=== PATIENT | female | born 1960 | race Caucasian/White ===

== ENCOUNTER → 2016-08-18 | Outpatient (CLI) | payer OTHER | LOC: FIMAGING 09:55 | PROVIDERS: ATTEND Family Medicine | DX: G50.1 Atypical facial pain (principal) ==

== ENCOUNTER → 2016-11-17 | Outpatient (CLI) | payer OTHER | LOC: FIMAGING 09:05 | PROVIDERS: ATTEND Family Medicine | DX: Z12.31 Encounter for screening mammogram for malignant neoplasm of breast (principal) | CPT/HCPCS: G0202 ==

== ENCOUNTER → 2017-12-13 | Outpatient (CLI) | payer OTHER | LOC: FIMAGING 13:09 | PROVIDERS: ATTEND Family Medicine | DX: Z12.31 Encounter for screening mammogram for malignant neoplasm of breast (principal) ==

== ENCOUNTER → 2018-01-10 | Day surgery (SDC) | payer OTHER ==
[~2018-01-10] MED LIST: BUPIVACAINE 0.5% 10 ML SDV ONE; LIDOCAINE 1% 300 MG/30 ML SDV ONE; THROMBIN (BOVINE) 5,000 UNIT VIAL TP ONE
== END | disposition home or self-care (01) ==
LOC: FIMAGING 07:27
PROVIDERS: ATTEND Family Medicine
PROC: 0HBT3ZX Excision of Right Breast, Percutaneous Approach, Diagnostic (ICD-10-PCS; principal; 2018-01-10)
DX: D05.11 Intraductal carcinoma in situ of right breast (principal); Z88.2 Allergy status to sulfonamides

== ENCOUNTER → 2018-01-31 | Outpatient (CLI) | payer OTHER ==
[~2018-01-31] MED LIST changes: -BUPIVACAINE 0.5% 10 ML SDV ONE; +GADOBUTROL 10 ML VIAL IVP ONE; -LIDOCAINE 1% 300 MG/30 ML SDV ONE; -THROMBIN (BOVINE) 5,000 UNIT VIAL TP ONE
== END ==
LOC: FIMAGING 12:20
PROVIDERS: ATTEND Surgery
DX: D05.11 Intraductal carcinoma in situ of right breast (principal)
CPT/HCPCS: 0159T; A9585; C8908

== ENCOUNTER 2018-02-24 06:25 | Day surgery (SDC) | payer OTHER ==
[2018-02-24] MEDS ORDERED: LR 1,000 ML IV ONE (06:55)
[2018-02-24] MEDS ORDERED: LIDOCAINE 1% 300 MG/30 ML SDV ONE (07:29)
[2018-02-24] MEDS ORDERED: MIDAZOLAM 2 MG/2 ML VIAL IVP ONE (09:13)
--- NOTE | 2018-02-24 09:13 | PDANEPAE ---
ANE History of Present Illness BCA here for mastectomy ANE Past Medical History - Cardiovascular History Hx Hypertension: No Hx Arrhythmias: No Hx Chest Pain: No Hx Coronary Artery / Peripheral Vascular Disease: No Hx CHF / Valvular Disease: No Hx Palpitations: No - Pulmonary History Hx COPD: No Hx Asthma/Reactive Airway Disease: No Hx Recent Upper Respiratory Infection: No Hx Oxygen in Use at Home: No Hx Sleep Apnea: No Sleep Apnea Screening Result - Last Documented: Negative - Neurologic History Hx Cerebrovascular Accident: No Hx Seizures: No Hx Dementia: No - Endocrine History Hx Diabetes: No - Renal History Hx Renal Disorders: No - Liver History Hx Hepatic Disorders: No - Neurological & Psychiatric Hx Hx Neurological and Psychiatric Disorders: No - Cancer History Hx Cancer: Yes Cancer History Comment: Right breast CA - Congenital Disorder History Hx Congenital Disorders: No - GI History Hx Gastrointestinal Disorders: No - Other Health History Other Health History: wears glasses - Chronic Pain History Chronic Pain: Yes (rt. shoulder blade) - Surgical History Prior Surgeries: scoliosis surgery, 1997 ANE Review of Systems Review of Systems: - Exercise capacity METS (RN): 4 METS ANE Patient History - Allergies Allergies/Adverse Reactions: epinephrine Allergy (Verified 02/16/18 11:45) dental - feels weak & dizzy Sulfa (Sulfonamide Antibiotics) Allergy (Verified 02/16/18 11:45) nausea - Home Medications Home Medications: Ibuprofen 02/16/18 [Last Taken 2 Weeks Ago ~02/10/18] Alpha-3 02/16/18 [Last Taken 3 Weeks Ago ~02/03/18] Tylenol 02/16/18 [Last Taken 2 Days Ago ~02/22/18] Vitamin B Complex 02/16/18 [Last Taken 3 Days Ago ~02/21/18] Vitamin D3 02/16/18 [Last Taken 1 Week Ago ~02/17/18] - NPO status NPO Since - Liquids (Date): 02/23/18 NPO Since - Liquids (Time): 05:00 NPO Since - Solids (Date): 02/23/18 NPO Since - Solids (Time): 21:00 - Anes Hx Anes Hx: no prior problems - Smoking Hx Smoking Status: Former smoker - Alcohol Use Alcohol Use: Occasionally - Family Anes Hx Family Anes Hx: none Family Hx Anesthesia Complications: none ANE Labs/Vital Signs - Vital Signs Blood Pressure: 126/86 Heart Rate: 70 Respiratory Rate: 15 O2 Sat (%): 96 Height: 152.4 cm Weight: 53.524 kg ANE Physical Exam - Airway Neck exam: FROM Mallampati Score: Class 2 Mouth exam: normal dental/mouth exam - Pulmonary Pulmonary: no respiratory distress, clear to auscultation - Cardiovascular Cardiovascular: regular rate and rhythym, no murmur, rub, or gallop - ASA Status ASA Status: II ANE Anesthesia Plan Anesthesia Plan: GA w LMA
[2018-02-24] MEDS ORDERED: BUPIVACAINE 0.25% 30 ML SDV ONE (09:15)
[2018-02-24] MEDS ORDERED: ceFAZolin 2 GM/DEXTROSE 100 ML IV ONE (09:15)
[2018-02-24] MEDS ORDERED: EPINEPHrine 1 MG/ML INJ ONE (09:15)
--- NOTE | 2018-02-24 09:15 | PDHPUP ---
History & Physical Update H&P update statement: This history and physical update is based on an assessment of the patient which was completed after admission or registration (within 24 hours), but prior to the surgery/procedure. H&P update: H&P reviewed & patient examined, no change in patient's condition since H&P completed (pre-op needle loc images reviewed)
[2018-02-24] MEDS ORDERED: PROPOFOL 200 MG/20 ML VIAL ONE (09:19)
[2018-02-24] MEDS ORDERED: fentaNYL 100 MCG/2 ML INJ ONE ×2 (09:19→11:50)
[2018-02-24] MEDS ORDERED: LIDOCAINE 2% 100 MG/5 ML SYR ONE (09:23)
[2018-02-24] MEDS ORDERED: ePHEDrine SULFATE 25 MG/5 ML SYR ONE (10:20)
[2018-02-24] MEDS ORDERED: AVITENE POWDER 1 GM JAR TP ONE (10:52)
[2018-02-24] MEDS ORDERED: ONDANSETRON 4 MG/2 ML VIAL ONE (11:02)
[2018-02-24] MEDS ORDERED: DEXAMETHASONE 4 MG/ML VIAL ONE (11:02)
[2018-02-24] MEDS ORDERED: PROMETHAZINE HCL 25 MG/ML INJ IVP PRN (11:22)
[2018-02-24] MEDS ORDERED: oxyCODONE IR 5 MG TAB PO PRN (11:22)
[2018-02-24] MEDS ORDERED: NALOXONE HCL 0.4 MG/ML INJ IVP PRN (11:22)
[2018-02-24] MEDS ORDERED: HYDROCODONE/APAP 5/325 TAB PO PRN ×2 (11:22→11:26)
[2018-02-24] MEDS ORDERED: fentaNYL 100 MCG/2 ML INJ IVP PRN (11:22)
[2018-02-24] MEDS ORDERED: ACETAMINOPHEN 500 MG TAB PO PRN (11:22)
[2018-02-24] MEDS ORDERED: ONDANSETRON 4 MG/2 ML VIAL IVP PRN (11:22)
--- NOTE | 2018-02-24 11:24 | POSTANESTH ---
Post Anesthetic Evaluation Cardiovascular Status: Normal, Stable, Similar to Pre-Op Cond Respiratory Status: Normal, Stable, Similar to Pre-op Cond. Level of Consciousness/Mental Status: Mildly Sleepy, Arousable Pain Control: Adequate, Prn Tx Ordered Nausea/Vomiting Control: Adequate, Prn Tx Ordered Complications Possibly Related to Anesthesia: None Noted
[2018-02-24] MEDS ORDERED: ONDANSETRON DISINTEGRATING 4 MG TAB PO PRN (11:26)
--- NOTE | 2018-02-24 11:26 | POSTOPPROG ---
Post Op Note Date of Operation: 02/24/18 Surgeon: Pk Montgomery (, FACS) Anesthesiologist: Carmine Cunningham MD Anesthesia: LMA Pre-op Diagnosis: right breast DCIS Post-op Diagnosis: same Procedure: right partial mastectomy/immediate recon with adjacent tissue transfer Findings: Ca++ confirmed by specimen mammogram Inf/Abcess present in the surg proc area at time of surgery?: No EBL: Minimal (25ml) Complications: none Specimen(s): 1. right partial mastectomy specimen 2. additional medial, lateral, superior, posterior margins
[2018-02-24] MEDS ORDERED: HYDROCODONE/APAP 5/325 TAB ONE (12:25)
[2018-02-24 13:49] VITALS: BP 121/82
== END 2018-02-24 13:45 | disposition home or self-care (01) ==
LOC: FIMAGING 06:25
PROVIDERS: ATTEND Surgery
PROC: 0HBT0ZX Excision of Right Breast, Open Approach, Diagnostic (ICD-10-PCS; principal; 2018-02-24 09:40)
DX: D05.11 Intraductal carcinoma in situ of right breast (principal)
CPT/HCPCS: J0171; J0690; J1100; J2001; J2250; J2405; J2704; J3010

== ENCOUNTER → 2018-12-01 | Outpatient (CLI) | payer OTHER | LOC: FIMAGING 12:25 ==